=== PATIENT | female | born 1950 | race Caucasian/White ===

== ENCOUNTER → 2024-02-28 13:50 | Outpatient (REF) | payer MEDICARE, OTHER, SELFPAY | LOC: WDC 13:50 | PROVIDERS: ATTENDING PHYSICIAN Obstetrics & Gynecology Gynecology; FAMILY PHYSICIAN Physician Assistant Medical | DX: Z12.31 Encounter for screening mammogram for malignant neoplasm of breast (principal) | CPT/HCPCS: 77063; 77067 ==

== ENCOUNTER 2024-04-13 14:26 | Inpatient (IN) | payer MEDICARE, OTHER, SELFPAY ==
[2024-04-12] VITALS (11 sets, daily range): BP systolic 103–144; BP diastolic 57–106; BMI 22.4
[2024-04-12 11:45] LABS: % Basophils 2.1 % (0-2); % Eosinophils 6.9 % (0-6); % Immature Granulocytes 0.2 % (0-0.5); % Lymphocytes 21.5 % (20.5-51.1); % Monocytes 8.6 % (1.7-9.3); % Neutrophils 60.7 % (42.2-75.2); Absolute Basophils 0.1 10^3/uL (0-0.2); Absolute Eosinophils 0.4 10^3/uL (0-0.7); Absolute Lymphocytes 1.2 10^3/uL (1.2-3.4); Absolute Monocytes 0.5 10^3/uL (0.1-0.6); Absolute Neutrophils 3.3 10^3/uL (1.4-6.5); Hematocrit 31.7 % (37.0-47.0); Hemoglobin 10.8 g/dL (12.0-16.0); Mean Corp Hgb Conc. 34.1 g/dL (33.0-37.0); Mean Corpuscular Hgb 28.7 pg (27.0-31.0); Mean Corpuscular Volume 84.3 fL (81.0-99.0); Mean Platelet Volume 9.7 fL (7.4-10.4); Nucleated Red Blood Cells % 0 %; Platelet Count 297 10^3/uL (130-400); Red Blood Cell Count 3.76 10^6/uL (4.20-5.40); Red Cell Dist. Width 14.4 % (11.5-14.5); White Blood Cell Count 5.4 10^3/uL (4.8-10.8)
[2024-04-12 12:01] LABS: ALT (SGPT) 21 U/L (0-35); AST (SGOT) 40 U/L (14-36); Albumin 4.1 g/dl (3.5-5.0); Alkaline Phosphatase 59 U/L (38-126); Blood Urea Nitrogen 30 mg/dl (7-17); Calcium 9.3 mg/dl (8.4-10.2); Carbon Dioxide 25 mmol/L (22-30); Chloride 105 mmol/L (98-107); Glucose 101 mg/dl (70-99); Potassium 4.7 mmol/L (3.5-5.1); Sodium 139 mmol/L (135-145); Total Bilirubin 0.8 mg/dl (0.2-1.3); Total Protein 6.5 g/dl (6.3-8.2); eGFR > 60.00
[2024-04-12 12:10] LABS: Troponin I < 0.012 ng/ml
--- NOTE | 2024-04-12 13:29 | ED.GENMED ---
History of Present Illness
General
Chief Complaint: Cardiac Symptoms
Time Seen by Provider: 04/12/24 12:01
History of Present Illness
History of Present Illness:
73-year-old female with history of CAD status post stenting about 15 years ago presenting to the emergency department for concern of chest pain. Patient reports around 10:30 AM she was walking her dog and had acute onset of left-sided chest pain
with radiation to her jaw. Reports the pain was severe. She walked home and took a nitroglycerin. She reports that she has never had to take nitro in the past for pain. She does follow routinely with cardiology. Patient had 3 nitro in total,
reports improvement of pain after nitro. Denies difficulty breathing. Denies fever. Denies abdominal pain or GI symptoms. Denies additional acute medical complaints
Past History
Past History
ED Past Medical History: CAD, MS and Other (Allergic rhinitis)
ED Past Surgical History: Cardiac (stent)
Social History
Tobacco: Non-smoker
Alcohol: None
Drug: None
Personal:
Living: with family
Employment: Retired
Family History
Family History: CAD
Phy Exam
Physical Exam
Physical Exam:
General: Well-appearing, no clinical signs of dehydration, nontoxic and in no acute distress
HEENT: protecting airway
Neck: appears supple
CV: Normal heart rate, regular rhythm, no evidence of cyanosis
Resp: No accessory muscle use, no increased work of breathing, lungs clear to auscultation bilaterally
Abd: Soft and non-distended, no tenderness to palpation
Extremities: No deformities, no swelling, no erythema, pulses and sensation intact
Neuro: alert, no focal neurologic deficit
: deferred
Rectal: deferred
Psych: Normal affect
Skin: Intact
Scores
Heart Score for Chest Pain Patients
STEMI patient?: No
History: Highly Suspicious
ECG: Normal
Age: >/= 65 years
Risk Factors: 1 or 2 Risk Factors
Troponin: </= Normal Limit
Heart Score for Chest Pain Patients: 5
Heart Score Risk: 20.3% MACE over next 6 weeks
Course
Orders/Labs/Results
Orders:
Orders
04/12/24 11:00
Electrocardiogram (*1) Urgent
Reason for Study: Chest Pain
EKG- Treatment ONCE
04/12/24 11:34
Complete Blood Count/With Diff Urgent
Comprehensive Metabolic Panel Urgent
Troponin I Urgent
04/12/24 14:20
Troponin I Urgent
Abnormal Lab Results
04/12/24
11:34
RBC 3.76 L 10^6/uL
(4.20-5.40)
Hgb 10.8 L g/dL
(12.0-16.0)
Hct 31.7 L %
(37.0-47.0)
Eosinophils % 6.9 H %
(0-6)
Basophils % 2.1 H %
(0-2)
BUN 30 H mg/dl
(7-17)
Glucose 101 H mg/dl
(70-99)
AST 40 H U/L
(14-36)
04/12/24 11:34
04/12/24 11:34
Vital Signs
Initial and Last Documented VS:
Initial Vital Signs
Temp Pulse Resp BP Pulse Ox
98.4 F 89 17 134/106 97
04/12/24 11:19 04/12/24 11:19 04/12/24 11:19 04/12/24 11:19 04/12/24 11:19
Last Documented Vital Signs
Temp Pulse Resp BP Pulse Ox
98.4 F 57 17 113/66 99
04/12/24 11:19 04/12/24 15:00 04/12/24 15:00 04/12/24 15:00 04/12/24 15:00
MDM/Problems Addressed
MDM/Problems Addressed:
73-year-old female with history of CAD status post stenting 15 years ago presenting for episode of chest pain prior to arrival. Vital signs on arrival are significant for hypertension which has since improved.
On exam, patient is well-appearing, no acute distress or discomfort. Overall benign cardiac and pulmonary exam. EKG obtained, nonischemic. However, patient story is concerning, particularly relief after nitroglycerin, with known coronary artery
disease. Laboratory analysis obtained per nursing protocol, initial troponin undetectable. Will discuss with cardiology, moderate risk by heart score.
12:50 - Per cardiology, recommending second troponin.
16:00 - Second troponin within normal limits, however in discussion with cardiology, plan for observation admission given high risk nature. Likely stress testing tomorrow. Will admit to hospitalist service.
*EKG
Interpreted by ED Provider?: Yes
EKG Intrepretation Date: 04/12/24
EKG Intrepretation Time: 13:32
Interpretation: normal
Comparison EKG: no changes
Heart Rate: 92
Rate: normal
Rhythm: sinus
[place]: normal axis
Interval: normal interval
Ischemia: no ischemia
*Critical Care Note
Total Time (30-74mins, 75-104mins- exclusive of procedures): Not Applicable
ED Attending Note
-
Portions of this chart may have been created with voice recognition software.� Occasional wrong word or��sound alike� substitutions may have occurred due to the inherent limitations of voice recognition software.
Discharge Plan
Departure
Prescriptions:
No Action
atorvastatin 10 MG tablet
10 mg PO QPM
vitamin B complex 1 TAB tablet
1 tab PO DAILY
aspirin 81 mg Tablet,Delayed Release (Dr/Ec)
81 mg PO QPM
magnesium 250 mg Tablet
250 mg PO QPM
coenzyme Q10 [Co Q-10] 100 mg Capsule
100 mg PO DAILY
cholecalciferol (vitamin D3) 25 mcg (1,000 unit) Tablet
25 mcg PO DAILY
Referrals:
Natalie Ash PA-C [Family Provider] -
Interventions
Interventions:
*Risk Screen - Suicide Last Done: 04/12/24 11:36
*General Assessment Last Done: 04/12/24 11:36
*Neglect/Abuse Screening Last Done: 04/12/24 11:36
*ED COVID-19 Vaccine History Last Done: 04/12/24 11:36
ED- Pulmonary Assessment Last Done: 04/12/24 11:35
ED- Cardiac Assessment Last Done: 04/12/24 11:35
Discharge Date and Time
Print Language: KOREAN
[2024-04-12 15:06] LABS: Troponin I < 0.012 ng/ml
--- NOTE | 2024-04-12 16:18 | HPS.HSE ---
Family Physician
-
Family Physician: Natalie Ash PA-C
Chief Complaint
-
Left-sided chest pain
History of Present Illness
73-year-old female with known history of coronary artery disease status post stenting LAD placed in 2012, hypertension and she has been doing well since then had a 2 stress test but in 2012 and 2018 there were normal, presented to the hospital with
a who developed chest pain while doing her routine walking her dog a mile walk every day, just the end of the mild while she is going uphill started having the left side chest pain initially localized moderately severe and she decided to
walk back to the hospital and now walk the pain continue and start radiating to the left side of the neck and jaw and the left shoulder and the left elbow area, without changing the severity of the pain, she made at home and took 3 sublingual nitro
eventually pain subsided but they became a pressure but in milder form eventually by the time she was in the ER her pain completely went away, denies any sweating or any nausea or vomiting or any fever or chill or cough or congestion but no
shortness of breath.
According to the patient usually before. She does not eat anything other than a glass of the lemon water.
Denies recent travel or sick contact.
Workup in the ER including EKG and cardiac enzyme were negative
ER physician they spoke to the cardiology recommended admit for observation and trend the troponin.
She is awake, alert and oriented x 3 hold appropriate conversation accompanied by her at the bedside.
Medical History
Past Medical History
Past Medical History: Reports Other
Additional Past Medical History:
Past medical history reviewed:
Coronary artery disease status post stenting LAD in 2012
Dyslipidemia
Social history: No smoking alcohol use, she is independent lives at home with her .
Family history: Reviewed and noncontributory
Past Surgical History: Reports Other
Social History
Unable to obtain full social history at this time due to: Other
Family History
Family History: Other
Allergies / Home Medications
Allergies reflects when Allergies were last updated in [facility].
Home Medications with original date entered in [facility]
Allergy/Medication List:
Allergies
Allergy/AdvReac Type Severity Reaction Status Date / Time
seasonal Allergy sneezing, Uncoded 02/18/19 16:21
runny
itching
eyes
Home Medications
atorvastatin 10 mg tablet 10 mg PO QPM 01/24/13
vitamin B complex 1 tab PO DAILY 07/01/17
aspirin 81 mg tablet,delayed release 81 mg PO QPM 04/12/24
cholecalciferol (vitamin D3) 25 mcg (1,000 unit) tablet 25 mcg PO DAILY 04/12/24
coenzyme Q10 100 mg capsule (Co Q-10) 100 mg PO DAILY 04/12/24
magnesium 250 mg tablet 250 mg PO QPM 04/12/24
Review of Systems
-
A 12 point ROS was completed and negative except as noted: Yes
Physical Exam
Vital Signs
Vital Signs
Temp Pulse Resp BP Pulse Ox
98.4 F 79 13 138/79 100
04/12/24 11:19 04/12/24 16:00 04/12/24 16:00 04/12/24 16:00 04/12/24 16:03
Physical exam:
General: Awake, alert and oriented x3, not in distress and holds appropriate conversation.
HEENT: No active discharge, ecchymosis or bruising, moist lips, tongue and mucous membrane.
Eyes: No discharge or red conjunctiva, no nystagmus, pupils are reactive and equal
Neck:Supple, no JVD no bruit no goiter.
Respiratory: Normal AP contour and diameter, normal chest wall movement, normal respiratory effort, no respiratory distress,
Lungs: Good air entry bilaterally, no wheezing or rhonchi, no rales or crackles
Heart: S1, S2 regular, normal rate, no added sound.
Gastrointestinal: Positive bowel sounds, soft, nontender, no guarding or rigidity or organomegaly
Musculoskeletal: , no chest wall abnormality or tenderness. All joints and extremities have good range of motion, no muscle tenderness or any joint swelling or tenderness.
Extremities: No pitting edema, good peripheral pulses, good range of motion
Skin: Warm and dry, no ulceration, normal color.
Neurological: Awake, alert and oriented x3, no facial droop, speech clear and comprehensive, good muscle tone, normal sensory and motor function
Psychiatric: Normal mood, normal thought and judgment, normal affect,
Physical Exam
General: Other
Laboratory Results
-
04/12/24 11:34
04/12/24 11:34
Laboratory Results
Total Bilirubin 0.8 mg/dl (0.2-1.3) 04/12/24 11:34
AST 40 U/L (14-36) H 04/12/24 11:34
ALT 21 U/L (0-35) 04/12/24 11:34
Alkaline Phosphatase 59 U/L (38-126) 04/12/24 11:34
Troponin I < 0.012 ng/ml 04/12/24 14:20
EKG showed normal sinus rhythm rate around 92, AL 164, QTc 466 otherwise normal axis and no acute abnormalities
Data Reviewed
-
Medical Tests (Nuc Med, Echo, EKG etc): Image Personally Visualized and interpreted, Report Reviewed by me, Discussed with Patient and Discussed with Family
Lab Data: Labs Reviewed by me, Discussed with Patient and Discussed with Family
Old Records: Reviewed
Impression/Plan
-
IMPRESSION:
73-year-old female with history of CAD and stenting LAD placed in 2012, presented to the hospital with left-sided chest pain, concerning for coronary artery disease while other causes may need to be considered.
Left-sided chest pain: Coronary artery disease may need to be considered rule out, other possibility musculoskeletal or GERD, doubt pulm embolism as pain subsided there is no hypoxia or tachycardia.
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
Cardiology consult
May benefit from ischemic workup will defer to cardiology
Keep n.p.o. after midnight in case cardiology do any workup.
Continue aspirin and statin and she is not on any beta-lianne.
History of CAD and stent in LAD
As above
Dyslipidemia: Continue atorvastatin
All discussed with the patient and the in detail and expressed understanding
CODE STATUS full code
DVT prophylaxis Lovenox:
--- NOTE | 2024-04-12 17:49 | CON.CAR ---
Medical History
-
Chief Complaint: Chest pain
History of Present Illness:
73-year-old female with history of CAD status post LAD stenting about 15 years ago presenting to the emergency department for concern of chest pain. Patient reports around 10:30 AM she was walking her dog and had acute onset of left-sided chest
pain with radiation to her jaw. Reports the pain was severe. She walked home and took a nitroglycerin. She reports that she has never had to take nitro in the past for pain. She does follow routinely with cardiology. Patient had 3 nitro in
total, reports improvement of pain after nitro. Denies difficulty breathing. Denies fever. Denies abdominal pain or GI symptoms. Denies additional acute medical complaints
Last stress test was 2016 (07/16/2017) with nuclear myocardial perfusion scan -normal perfusion scan with negative for ischemia and had nonspecific ST depression changes with exercise on treadmill.
Last echo 07/31/2019: Normal BiV systolic functions. LVEF 65% no significant valvular disease.
Past Medical History
Past Medical History: CAD (Coronary disease with MN and PCI to LAD 15 years ago)
Past Surgical History: Cardiac (PCI to LAD)
Social History
Tobacco: Non-Smoker
Alcohol: None
Personal:
Living: With Family
Family History
Family History: Reviewed & Not Pertinent
Allergies / Home Medications
Allergy/AdvReac Type Severity Reaction Status Date / Time
seasonal Allergy sneezing, Uncoded 02/18/19 16:21
runny
itching
eyes
�Medication �Instructions �Recorded �Confirmed �Type
atorvastatin 10 mg tablet 10 mg PO QPM 01/24/13 04/12/24 History
vitamin B complex 1 tab PO DAILY 07/01/17 04/12/24 History
aspirin 81 mg tablet,delayed 81 mg PO QPM 04/12/24 04/12/24 History
release
cholecalciferol (vitamin D3) 25 25 mcg PO DAILY 04/12/24 04/12/24 History
mcg (1,000 unit) tablet
coenzyme Q10 100 mg capsule (Co 100 mg PO DAILY 04/12/24 04/12/24 History
Q-10)
magnesium 250 mg tablet 250 mg PO QPM 04/12/24 04/12/24 History
Review of Systems
-
History Source: Patient
All other systems: Negative unless noted
Physical Exam
Vital Signs
Temp Pulse Resp BP Pulse Ox
97.8 F 56 18 143/77 100
04/12/24 17:46 04/12/24 17:46 04/12/24 17:46 04/12/24 17:46 04/12/24 17:46
Lab Results
04/12/24 11:34
04/12/24 11:34
Troponin I < 0.012 ng/ml 04/12/24 14:20
Physical Exam
General: Well Developed, Well Nourished, No Apparent Distress and Comfortable
HEENT: Normocephalic, Anicteric and Moist Mucous Membranes
Respiratory: Clear and Non Labored Respirations
Cardiac: S1/S2 and Regular Rhythm; Negative Murmur
GI: Soft, Non Distended and Normal Bowel Sounds
Musculoskeletal: No Clubbing, No Cyanosis and No Edema
Skin: Warm and Dry
Neuro: Awake, Alert, Oriented, AO x 3 and No Motor Deficits
Psych: Calm
Impression / Plan
-
73-year-old woman with a history of coronary disease and PCI to LAD in 2012, presented with left-sided chest pain while walking with her dog
Chest pain
- Currently completely resolved and no sign of chest pain.
- Serial troponins are negative
- EKG is unchanged.
- Chest pain was typical and was associated with exertion. Given patient's history of LAD disease and last workup few years ago, we will recommend admitting patient overnight.
- Will plan to get echo and a stress test with myocardial perfusion scan in the morning.
-Patient's previous exercise stress test was falsely positive with no ischemia noted on the myocardial perfusion scans.
-We will also get exercise-stress myocardial perfusion scan.
- Continue aspirin and statins.
- Will start anticoagulation with heparin if chest pain recurs. Will also add beta-blockers at that time.
Data Reviewed
-
EKG: Tracing Personally Visualized and interpreted and Report Reviewed by me
Labs: Labs Reviewed by me, Discussed with Physician, Discussed with Nurse and Discussed with Patient
Old Records: Reviewed
[2024-04-12] MEDS: LIPITOR 10 MG PO (18:01)
[2024-04-12] MEDS: ASPIR LOW (ENTERIC COATED) 81 MG PO (18:01)
[2024-04-12] MEDS: MAGNESIUM OXIDE 250 MG PO (18:01)
[2024-04-12 22:09] LABS: Troponin I < 0.012 ng/ml
[2024-04-13] VITALS (15 sets, daily range): BP systolic 93–141; BP diastolic 48–70; BMI 22.4
[2024-04-13 04:53] LABS: Blood Urea Nitrogen 25 mg/dl (7-17); Calcium 9.5 mg/dl (8.4-10.2); Carbon Dioxide 26 mmol/L (22-30); Chloride 106 mmol/L (98-107); Estimated Creatinine Clearance 64 ml/min; Glucose 84 mg/dl (70-99); Potassium 4.2 mmol/L (3.5-5.1); Sodium 140 mmol/L (135-145); eGFR > 60.00
[2024-04-13 05:02] LABS: Troponin I < 0.012 ng/ml
--- NOTE | 2024-04-13 09:49 | W.PN.HOSP.TC ---
Today's Communication/Plan
-
NPO for cardiac cath
continue asa
start D5LR
Assessment / Plan
Assessment / Plan
73-year-old female with known history of coronary artery disease status post stenting LAD 2012, hypertension presents to the ER with chest pain while walking her dog. Pain radiated to left side of neck and jaw s/p 3 subL nitro with resolution of
pain.
TTE
CONCLUSIONS
Normal left ventricular size, wall thickness and systolic function. No regional
wall motion abnormalities are seen. LV ejection fraction is 57% by Bates's
method of discs. Normal diastolic function.
Normal right ventricular size and function.
Normal atria.
Mild posterior leaflet prolapse with trace mitral regurgitation is seen.
No other significant valve abnormalities.
No evidence of pulmonary hypertension.
No significant change since the prior study of 07/31/2019.
Left-sided chest pain
Unstable Angina
History of CAD and stent in LAD
-Troponin negative x 3
-Cardiology consult
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
-s/p echo this AM, results above
-patient developed hypotension and nausea during stress test - plan is to proceed to cath
-IV Heparin gtt initiated
-start D5LR, unclear timing cath
Dyslipidemia: Continue atorvastatin
All discussed with the patient and the in detail and expressed understanding
CODE STATUS full code
DVT prophylaxis Lovenox:
Anticipated Discharge: > 48 hours
Subjective/Interval History
-
Date of Service: April 13, 2024
seen post stress test, awaiting cath
currently denies chest pain
Objective Data
-
Labs:
Laboratory Results
04/13/24
03:58
Sodium 140
Potassium 4.2
Chloride 106
Carbon Dioxide 26
BUN 25 H
Creatinine 0.6
Glucose 84
Calcium 9.5
Vital Signs:
Vital Signs
Temp Pulse Resp BP Pulse Ox
97.9 F 61 20 123/70 99
04/13/24 07:48 04/13/24 07:48 04/13/24 07:48 04/13/24 07:48 04/13/24 07:50
I&O
04/12/24 04/13/24 04/14/24
06:59 06:59 06:59
Intake Total 240 / 240
Balance 240 / 240
Review of Systems
-
History Source: Patient
All other systems: Reviewed and negative
Physical Exam
-
General: No Apparent Distress
HEENT: PERRLA
Respiratory: Clear to Auscultation; Negative Wheezes
Cardiac: Regular Rhythm and S1/S2
GI: Soft and Nontender
Musculoskeletal: No Edema
Skin: Warm and Dry; Negative Rash
Neuro: AO x 3
Psych: Calm
Data Reviewed
-
Diagnostic Radiology: Report Reviewed by me
Labs: Labs Reviewed by me
--- NOTE | 2024-04-13 11:35 | W.PN.CD ---
Today's Communication / Plan
-
ASA, heparin drip
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
Impression / Plan
-
73-year-old woman with a history of coronary disease and PCI to LAD in 2012, hyperlipidemia is admitted with exertional chest pain.
# Chest pain
-concern for unstable angina with hypotension and nausea at stress test; unable to complete treadmill exercise
-discussed with patient and interventional cards
-proceed to [facility]
-echo today
-ASA 324mg and heparin drip
# CAD prior stent
-cont ASA
-plan for cath as above
# Hyperlipidemia
-she is on atorvastatin 10mg
-add on lipid panel to advise on dosing
Physical Exam
Vital Signs/Labs
Vital Signs
Temp Pulse Resp BP Pulse Ox
97.9 F 61 20 123/70 99
04/13/24 07:48 04/13/24 07:48 04/13/24 07:48 04/13/24 07:48 04/13/24 07:50
04/12/24 04/13/24 04/14/24
06:59 06:59 06:59
Actual Weight 55.593 kg
04/13/24 03:58
LAB Results
04/12/24 04/12/24 04/12/24
11:34 14:20 21:30
Troponin I < 0.012 < 0.012 < 0.012
04/13/24 04/13/24
02:00 03:58
Troponin I Cancelled < 0.012
Physical Exam
Constitutional: No acute distress and Comfortable
EENT: Moist mucous membranes
Cardiovascular: Rhythm & rate is regular, Pedal edema is absent, JVD pressure is normal and Systolic murmur absent
Respiratory: Respiratory effort normal and Lungs clear to auscul.
GI: Soft and Distention absent
Neuro/Psych: AO x 3
Data Reviewed
-
Date of Service: April 13, 2024
EKG: Other (Tele: SR 60s)
Labs: Labs Reviewed by me
[2024-04-13] MEDS: NSS 250 IV (11:36)
[2024-04-13] MEDS: ASPIRIN 325 MG PO (11:42)
--- NOTE | 2024-04-13 11:52 | PTCARENOTE ---
Pt in cardiac service in the process of a walking nuclear stress. First nuclear images were obtained by nuclear med. While starting to stand on the treadmill, she felt lightheaded, BP dropped to 86/60. Possible vasal vagel, BP then back to her
baseline, but when to back to the treadmill, she again felt lightheaded. PT denied any chest pain at this time. Dr Justin to room, spoke to pt, having her describe the chest discomfort she had that brought her to the ER yesterday morning. Dr Justin
decided for pt to have a cardiac cath today, and stop the nuclear stress test. Dr Justin spoke to laboratory animal caretaker and ARNULFO Campoverde in to see pt and write orders, and spoke to pt's nurse on . 250 ml NSS iv bolus infused and 325mg po aspirin was given with
sm sip of water. POst bolus, BP now 120/60. Pt being brought back to room and heparin iv to be started there.
[2024-04-13] MEDS: HEPARIN 3300 UNITS IV (12:55)
[2024-04-13] MEDS: HEPARIN 25000 UNITS/250 ML IV (12:57)
[2024-04-13 13:16] LABS: Hematocrit 35.2 % (37.0-47.0); Hemoglobin 11.8 g/dL (12.0-16.0); Mean Corp Hgb Conc. 33.5 g/dL (33.0-37.0); Mean Corpuscular Hgb 28.5 pg (27.0-31.0); Mean Platelet Volume 9.8 fL (7.4-10.4); Platelet Count 305 10^3/uL (130-400); Red Blood Cell Count 4.14 10^6/uL (4.20-5.40); Red Cell Dist. Width 14.6 % (11.5-14.5); White Blood Cell Count 6.2 10^3/uL (4.8-10.8)
[2024-04-13 13:20] LABS: APTT 23.4 Sec (23.4-35.0)
[2024-04-13 13:26] LABS: HDL Cholesterol 102 mg/dl; LDL Cholesterol, Calculated 54 mg/dl; Total Cholesterol 164 mg/dl (50-199); Triglyceride 44 mg/dl (10-149); Very Low Density Lipoprotein 8 mg/dl (0-30)
[2024-04-13 13:46] LABS: Troponin I < 0.012 ng/ml
--- NOTE | 2024-04-13 14:38 | CM ---
Patient seen bedside. IA completed.
Patient lives with spouse in a 2story home.
Independent prior to admission without assistive devices, although has RW at home.
Patient drives.
Patient attended outpatient cardiac rehab s/p prior OK.
patient for cardiac cath today.
IMM reviewed.
PCP: Dr Ash
Pharmacy: [facility]
Plan: home no needs anticipated, spouse will transport.
[2024-04-13 16:29] LABS: ACT-LR - POC 263 Seconds (116-155)
[2024-04-13 16:40] LABS: ACT-LR - POC 310 Seconds (116-155)
[2024-04-13] MEDS: NSS 1000 IV (18:04)
[2024-04-13] MEDS: TYLENOL 650 MG PO (18:10)
[2024-04-13] MEDS: MAGNESIUM OXIDE 250 MG PO (18:11)
[2024-04-13] MEDS: LIPITOR 40 MG PO (18:12)
--- NOTE | 2024-04-13 18:35 | PTCARENOTE ---
Patient arrived from cath laboratory technician with TR band on right wrist. Vital signs are stable. Pt endorsed pulling chest pain. Cardiology was at bedside and told patient to expect this pulling chest pain/pressure for 12-24 hours as it is related to the 'shock
wave therapy' she underwent in cath laboratory technician. Tylenol given per order for pain. RN updated pt and pt's on plan of care and pm medication administration.
--- NOTE | 2024-04-13 18:53 | ITS.CL.ANGIO ---
[employer] - Angioplasty
Angioplasty
Procedure Report:
CARDIAC CATHETERIZATION REPORT
Date of Procedure: 04/13/2024
Referring: Alan Justin M.D., Ph.D.
INDICATION: Unstable angina.
PROCEDURE:
1. Left heart catheterization
2. Coronary angiography
3. Successful IFR of the mid RCA.
4. Successful IFR of the proximal LAD.
5. Successful IVUS of the proximal/mid LAD and left main coronary artery.
6. Successful intracoronary lithotripsy of the proximal LAD.
7. Successful PCI of the proximal LAD.
ACCESS:
6 Kenyan right radial artery.
CATHETERS:
1. 5 Kenyan JR4.
2. 5 Kenyan JL 3.5.
3. 6 Kenyan EBU 3.5 guiding catheter.
HEMODYNAMIC DATA
Weight (kg): 55.3
AO (s/d/x, mmHg): 109/68/87
LV (s/x mmHg): 111/8
LEFT VENTRICULOGRAPHY: Not performed.
CORONARY ANGIOGRAPHY
Dominance: Right.
Left Main: Normal size, trifurcating vessel. There is no coronary artery disease.
LAD: Normal size vessel giving rise to a very small D1 followed by a much larger second diagonal. There is a significant, underappreciated, densely calcified lesion in the proximal margin of the LAD. There is a patent stent in the mid LAD with
30-40% in-stent restenosis.
Ramus: Medium to large size vessel supplying a significant portion of the anterolateral wall. There is moderate tortuosity. There is no coronary artery disease.
Circumflex: Large size, nondominant vessel giving rise to 2 small obtuse marginals before terminating as a left posterolateral branch. There is no coronary artery disease.
RCA: Normal size, dominant vessel. There is at least moderate tortuosity. There is a 50% lesion in the mid vessel.
INTERVENTION(S)
1. Successful IFR of the 50% mid RCA lesion, demonstrating nonocclusive disease (IFR = 0.95).
2. Successful IFR of the proximal and mid LAD including the 30-40% in-stent restenosis, demonstrating significant, occlusive disease (IFR = 0.60).
3. Successful IVUS of the proximal and mid LAD confirming 30-40% in-stent restenosis and revealing a significant, densely calcified proximal LAD lesion, underappreciated on angiography.
4. Successful intracoronary lithotripsy of the proximal LAD lesion (shockwave 3.5 x 12 coronary lithotripsy balloon).
5. Successful PCI of the proximal LAD lesion and the 30-40% in-stent restenosis (Medtronic [place] 3.0 x 34 LOI, postdilated with a 3.0 NC balloon) with reduction in stenosis to 0%, maintaining ANNABEL-3 flow.
Narrative:
The decision was made to perform physiologic testing. The diagnostic catheter was removed over a wire and exchanged for a(n) 6 Kenyan JR4 guiding catheter. The guiding catheter was advanced into the ascending aorta and seated in the right coronary
artery. Additional heparin was given to obtain an ACT greater than 250 seconds. An iFR wire was zeroed outside of the body, then inserted into the guiding sheath. The wire was advanced and the transducer was normalized just outside of the guiding
catheter tip. The wire was advanced into the distal RCA. Three iFR measurements were taken. The lesion was determined to be nonocclusive (0.95).
We then turned our attention to the left anterior descending artery. The decision was made to perform physiologic testing. The JR4 guiding catheter was removed over a wire and exchanged for a(n) 6 Kenyan EBU 3.5 guiding catheter. The guiding
catheter was advanced into the ascending aorta and seated in the left main coronary artery. Additional heparin was given to obtain an ACT greater than 250 seconds. An iFR wire was zeroed outside of the body, then inserted into the guiding sheath.
The wire was advanced and the transducer was normalized just outside of the guiding catheter tip. The wire was advanced into the mid LAD, beyond the stented segment with 30-40% in-stent restenosis. Three iFR measurements were taken. The lesion was
determined to be severely occlusive (0.60).
Given the relative surprise of such a positive result from IFR in the mid LAD as well as concern for catheter dampening with engagement of the left main, the decision was made to perform intracoronary imaging. The connection was removed from the
IFR wire, which was subsequently used for IVUS. An IVUS catheter was advanced through the guiding catheter and into the ostium of the artery. Ring down was performed once the imaging crystal was no longer inside of the guiding catheter. The IVUS
catheter was advanced into the mid LAD. Intravascular ultrasound was performed in a retrograde fashion using a slow pullback. Intracoronary imaging demonstrated significant in-stent restenosis within the stented segment of the artery. More
proximally to the artery, IVUS revealed a severe, densely calcified proximal LAD lesion. The lesion extended into the proximal LAD but did not intrude upon the left main. IVUS also confirmed there was no occlusive pathology within the left main
coronary artery.
The decision was made to proceed with percutaneous coronary intervention. The Omni wire was removed. Additional heparin was given and a Power Turn Flex wire was advanced into the distal LAD.
Given the 360 degree arc of calcium observed on the IVUS, the decision was made to proceed with upfront intracoronary lithotripsy. A Shockwave 3.5 x 12 coronary lithotripsy balloon was advanced over the wire and into the proximal LAD lesion. The
balloon was sterilely connected to the controller and prepped to negative pressure. Meticulous care was taken while positioning the shockwave balloon. Once in satisfactory position, the balloon was inflated to 4 zach. After confirming good contact
with the vessel wall, 10 pulses were delivered. After delivering 10 pulses, the balloon was inflated to 6 zach then deflated. The entire lesion was treated in a similar manner for total of 8 rounds.
The shockwave balloon was removed and a Medtronic [place] 3.0 x 34 drug-eluting stent was advanced. Meticulous care was taken while positioning the stent, ensuring that the proximal stent did not meaningfully protrude into the left main
coronary artery. The distal aspect of the stent was covering the entire in-stent restenosis segment. The stent was deployed at 12 atmospheres. The stent balloon was removed. A 3.0 x 20 noncompliant balloon was advanced into the stent and the stent
was postdilated to 16 atmospheres. Angiography was performed in orthogonal views, confirming good stent expansion and an excellent angiographic result. The coronary wire was withdrawn and the guide was disengaged from the artery. The catheter was
removed over a standard J-wire.
Closure Device: Vascular band.
Radiation (mGy): 756.93
DAP (cm2.Gy): 40.9963
Fluoroscopy time (minutes): 21.9
Sedation time (minutes): 88
CONCLUSIONS
1. Right dominant circulation with nonocclusive 50% mid RCA lesion (IFR = 0.95), a 30-40% in-stent restenosis lesion in the patent mid LAD stent and an underappreciated, densely calcified, severely occlusive proximal LAD lesion (IFR = 0.60) status
post successful IVUS guided intracoronary lithotripsy (shockwave 3.5 x 12 intracoronary lithotripsy balloon) and PCI (Medtronic [place] 3.0 x 34 LOI, postdilated with a 3.0 NC balloon) with reduction in stenosis to 0%, maintaining ANNABEL-3 flow.
2. Normal filling pressures (LVEDP = 8 mmHg at 55.3 kg).
RECOMMENDATIONS:
1. Expectant management after cardiac catheterization via right radial approach.
2. Limited weight bearing on the right for one week.
3. Dual antiplatelet therapy with aspirin and clopidogrel for at least 12 months, followed by aspirin indefinitely.
4. Aggressive risk factor modification including high-dose, high potency statin.
5. Echocardiogram ordered and pending.
6. Guideline directed medical therapy as hemodynamics will tolerate.
7. Referral to cardiac rehab.
Copy to: Alan Justin M.D., Ph.D., EBONY Lund, Ritesh Rosa M.D.
Álvaro Munguia DO, FACC, FACP
[2024-04-14] VITALS (17 sets, daily range): BP systolic 80–128; BP diastolic 39–115
[2024-04-14] MEDS: NSS 1000 IV (01:20)
[2024-04-14 04:24] LABS: Hematocrit 31.8 % (37.0-47.0); Hemoglobin 10.7 g/dL (12.0-16.0); Mean Corp Hgb Conc. 33.6 g/dL (33.0-37.0); Mean Corpuscular Hgb 28.3 pg (27.0-31.0); Mean Corpuscular Volume 84.1 fL (81.0-99.0); Mean Platelet Volume 10.1 fL (7.4-10.4); Platelet Count 288 10^3/uL (130-400); Red Blood Cell Count 3.78 10^6/uL (4.20-5.40); Red Cell Dist. Width 14.4 % (11.5-14.5); White Blood Cell Count 6.6 10^3/uL (4.8-10.8)
[2024-04-14 04:47] LABS: Blood Urea Nitrogen 21 mg/dl (7-17); Calcium 9.1 mg/dl (8.4-10.2); Carbon Dioxide 23 mmol/L (22-30); Chloride 107 mmol/L (98-107); Estimated Creatinine Clearance 64 ml/min; Glucose 102 mg/dl (70-99); Magnesium 2.1 mg/dl (1.6-2.3); Potassium 4.3 mmol/L (3.5-5.1); Sodium 141 mmol/L (135-145); eGFR > 60.00
--- NOTE | 2024-04-14 07:46 | W.PN.HOSP.TC ---
Today's Communication/Plan
-
see plan
Assessment / Plan
Assessment / Plan
73-year-old female with known history of coronary artery disease status post stenting LAD 2012, hypertension presents to the ER with chest pain while walking her dog. Pain radiated to left side of neck and jaw s/p 3 subL nitro with resolution of
pain.
TTE 04/13/24
CONCLUSIONS
Normal left ventricular size, wall thickness and systolic function. No regional
wall motion abnormalities are seen. LV ejection fraction is 57% by Bates's
method of discs. Normal diastolic function.
Normal right ventricular size and function.
Normal atria.
Mild posterior leaflet prolapse with trace mitral regurgitation is seen.
No other significant valve abnormalities.
No evidence of pulmonary hypertension.
No significant change since the prior study of 07/31/2019.
Cardiac Cath 04/13/24
CONCLUSIONS
1. Right dominant circulation with nonocclusive 50% mid RCA lesion (IFR = 0.95), a 30-40% in-stent restenosis lesion in the patent mid LAD stent and an underappreciated, densely calcified, severely occlusive proximal LAD lesion (IFR = 0.60) status
post successful IVUS guided intracoronary lithotripsy (shockwave 3.5 x 12 intracoronary lithotripsy balloon) and PCI (Medtronic [place] 3.0 x 34 LOI, postdilated with a 3.0 NC balloon) with reduction in stenosis to 0%, maintaining ANNABEL-3 flow.
2. Normal filling pressures (LVEDP = 8 mmHg at 55.3 kg).
RECOMMENDATIONS:
1. Expectant management after cardiac catheterization via right radial approach.
2. Limited weight bearing on the right for one week.
3. Dual antiplatelet therapy with aspirin and clopidogrel for at least 12 months, followed by aspirin indefinitely.
4. Aggressive risk factor modification including high-dose, high potency statin.
5. Echocardiogram ordered and pending.
6. Guideline directed medical therapy as hemodynamics will tolerate.
7. Referral to cardiac rehab.
Left-sided chest pain
Unstable Angina
History of CAD and stent in LAD
-Troponin negative x 3
-Cardiology consult appreciated
--patient developed hypotension and nausea during stress test - proceeded to cath and found to have severely occlusive proximal LAD lesion; 30-40% in-stent restenosis mid LAD s/p lithotripsy, PCI 04/13
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
- plavix x 1 year
- F/U further cardiology recs
Dyslipidemia: Continue atorvastatin
All discussed with the patient and the in detail and expressed understanding
CODE STATUS full code
DVT prophylaxis
Anticipated Discharge: Within 24 hours
Subjective/Interval History
-
Date of Service: April 14, 2024
right wrist had band on for a while overnight, some bruising no hematoma
no chest pain
Objective Data
-
Labs:
Laboratory Results
04/13/24 04/14/24
19:05 03:53
WBC 6.6
Hgb 10.7 L
Hct 31.8 L
Plt Count 288
APTT Cancelled
Sodium 141
Potassium 4.3
Chloride 107
Carbon Dioxide 23
BUN 21 H
Creatinine 0.6
Glucose 102 H
Calcium 9.1
Vital Signs:
Vital Signs
Temp Pulse Resp BP Pulse Ox
98.2 F 61 18 106/52 98
04/14/24 07:25 04/14/24 04:00 04/14/24 07:25 04/14/24 04:00 04/14/24 07:25
I&O
04/13/24 04/14/24 04/15/24
06:59 06:59 06:59
Intake Total 240 / 240 1165 / 1165
Output Total 0 / 0
Balance 240 / 240 1165 / 1165
Review of Systems
-
History Source: Patient
All other systems: Reviewed and negative
Physical Exam
-
General: No Apparent Distress
HEENT: PERRLA
Respiratory: Clear to Auscultation; Negative Wheezes
Cardiac: Regular Rhythm and S1/S2
GI: Soft and Nontender
Musculoskeletal: No Edema and Other (right wrist with full ROM, no hematoma )
Skin: Warm and Dry; Negative Rash
Neuro: AO x 3
Psych: Calm
Data Reviewed
-
Diagnostic Radiology: Report Reviewed by me
Labs: Labs Reviewed by me
--- NOTE | 2024-04-14 07:50 | PTCARENOTE ---
Assumed care of pt from prev nsg shift; AAOx3 w/no c/o CP or SOB. Pt's VS stable w/HR in the 60's, BP this AM 109/56. Pt w/ R radial site w/dressing C/D?I w/no signs of hematoma vasiliy longer. Area around radial site very ecchymotic, w/no bleeding. Pt
w/NSS IV fluids infusing as ordered. Discussed plan of care w/pt. No addtl needs at this time. Plan of care ongoing.
--- NOTE | 2024-04-14 07:55 | W.CARD.POSTP ---
Post PCI Follow Up
Procedure
Procedure/Date: 04/13/24-proximal LAD iFR +, s/p angioplasty with shockwave and LOI x1
RCA iFR negative
Subjective:
post procedure chest discomfort now resolved
oob ambulating
cath site without pain
Site
Site: Radial: Right and No ht/bleeding, distal pulses palpable
Tele / EKG
SB/SR 40-60s w/sinus arrhythmia
no vt
Labs
04/14/24 03:53
04/14/24 03:53
APTT Cancelled 04/13/24 19:05
Magnesium 2.1 mg/dl (1.6-2.3) 04/14/24 03:53
Triglycerides 44 mg/dl (10-149) 04/13/24 03:58
LDL Cholesterol, Calc 54 mg/dl 04/13/24 03:58
VLDL Cholesterol, Calc 8 mg/dl (0-30) 04/13/24 03:58
HDL Cholesterol 102 mg/dl 04/13/24 03:58
DAPT Medication
DAPT Medication: Aspirin 81mg daily and Clopidogrel 75 mg daily
Plan
[place] with negative troponin x5
increase lipitor to 40mg/daily
BP soft and HR 50-60s- will hold on addition of any BB or RANDALL/ARB at this time
Cardiac rehab
Cards followup- 05/08 at 9:20am with Heather Quintana NP
--- NOTE | 2024-04-14 08:42 | W.PN.CD ---
Today's Communication / Plan
-
-Patient underwent successful LOI to proximal LAD yesterday; clinically stable.
-Unable to tolerate a beta-lianne due to baseline bradycardia.
-Atorvastatin increased from 10 mg to 40 mg daily; continue.
-Continue aspirin/Plavix for 1 year, then aspirin indefinitely.
-Echocardiogram yesterday revealed an LVEF of 55-60% with no significant valvulopathy.
-Stable for discharge home today; outpatient follow-up with cardiology.
Impression / Plan
-
73-year-old woman with a history of coronary disease and PCI to LAD in 2012, hyperlipidemia is admitted with exertional chest pain.
# Chest pain/UA:
-Patient underwent successful LOI to proximal LAD yesterday; clinically stable.
-Unable to tolerate a beta-lianne due to baseline bradycardia.
-Atorvastatin increased from 10 mg to 40 mg daily; continue.
-Continue aspirin/Plavix for 1 year, then aspirin indefinitely.
-Echocardiogram yesterday revealed an LVEF of 55-60% with no significant valvulopathy.
-Stable for discharge home today; outpatient follow-up with Cardiology.
# Hyperlipidemia
-Statin increased as above.
Physical Exam
Vital Signs/Labs
Vital Signs
Temp Pulse Resp BP Pulse Ox
98.2 F 57 18 115/63 98
04/14/24 07:25 04/14/24 08:00 04/14/24 07:25 04/14/24 08:00 04/14/24 07:25
04/13/24 04/14/24 04/15/24
06:59 06:59 06:59
Actual Weight 55.593 kg
04/14/24 03:53
04/14/24 03:53
APTT Cancelled 04/13/24 19:05
Magnesium 2.1 mg/dl (1.6-2.3) 04/14/24 03:53
Triglycerides 44 mg/dl (10-149) 04/13/24 03:58
LDL Cholesterol, Calc 54 mg/dl 04/13/24 03:58
VLDL Cholesterol, Calc 8 mg/dl (0-30) 04/13/24 03:58
HDL Cholesterol 102 mg/dl 04/13/24 03:58
LAB Results
04/12/24 04/12/24 04/12/24
11:34 14:20 21:30
Troponin I < 0.012 < 0.012 < 0.012
04/13/24 04/13/24 04/13/24
02:00 03:58 12:59
Troponin I Cancelled < 0.012 < 0.012
Physical Exam
Constitutional: No acute distress and Comfortable
EENT: Anicteric
Cardiovascular: Rhythm & rate is regular, Pedal edema is absent, Systolic murmur absent and S1S2 is normal
Respiratory: Respiratory effort normal and Lungs clear to auscul.
GI: Soft
Neuro/Psych: AO x 3
Other: Skin (Warm, dry, intact)
Data Reviewed
-
Date of Service: April 14, 2024
EKG: Tracing Personally Visualized and interpreted (Telemetry: Sinus rhythm)
Echo: Report Reviewed by me (LVEF 55-60%)
Medical Tests (PFT, Pathology etc): Discussed with Patient
Labs: Labs Reviewed by me
--- NOTE | 2024-04-14 08:55 | W.DS.TRANS ---
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
-
Discharge Instructions:
Sleep Apnea Risk Low
Discharge Diagnosis/Procedures Lithotripsy and angioplasty with stent to Left
Anterior Descending artery
Diet Regular
Activity As tolerated
Driving Restrictions No driving for 24 hours
Other Services Cardiac Rehab
Instructions:
Stand-Alone Forms: DC Instructions- Cath/EP Lab
Changes to Home Medications: Yes
Discharge Medications:
DC Medications w/original date entered in [employer]
vitamin B complex 1 tab PO DAILY 07/01/17
aspirin 81 mg tablet,delayed release 81 mg PO QPM 04/12/24
cholecalciferol (vitamin D3) 25 mcg (1,000 unit) tablet 25 mcg PO DAILY 04/12/24
coenzyme Q10 100 mg capsule (Co Q-10) 100 mg PO DAILY 04/12/24
magnesium 250 mg tablet 250 mg PO QPM 04/12/24
atorvastatin 40 mg tablet 40 mg PO QPM #30 tabs 04/14/24
clopidogrel 75 mg tablet 75 mg PO DAILY #90 tabs 04/14/24
Home Medication Changes
Continue aspirin/Plavix for 1 year, then aspirin indefinitely
Your Lipitor is increased from 10mg to 40mg in evenings.
Pending Results: No
[2024-04-14] MEDS: PLAVIX 75 MG PO (09:23)
--- NOTE | 2024-04-14 09:33 | CM ---
Reviewed chart. Mrs. Sanchez was transferred to IVU. [facility] Mrs. Sanchez to review discharge plans. She states she is feeling well and maybe able to go home soon. She states prior to admission she resides with her spouse in a to story home with
two steps to enter. She states she has a full flight of steps to get to bedroom/full bathroom. She states she has a powder room on the first floor. She states prior to admission she was independent with ambulation and adls. She states she has a
rolling walker at home and no other DME. Currently she is not using the walker. She states she has a prescription plan and uses [facility]. Medical work-up in progress. The discharge plan is to return home with her spouse when medically
stable.
--- NOTE | 2024-04-14 11:43 | PTCARENOTE ---
Discharge instructions discussed w/pt. IV line & telemetry pack removed. 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 Pt discharged to home w/spouse providing transportation.
--- NOTE | 2024-04-14 14:13 | W.DCSUMMARY ---
Discharge Summary
Discharge Data
Date of Admission: 04/13/24
Date of Discharge: 04/14/24
-
Pending Results: No
Hospital Course
Discharging Physician : Dr. Corina Rashid
Disposition : Home
Primary care physician : Dr. Natalie Ash
Principal Discharge diagnosis : Coronary Artery Disease, Unstable Angina
Hospital Course :
Ms. Samantha Sanchez is a 73 yo woman with known history of coronary artery disease status post PCI to LAD 2012, hypertension presents to the ER with chest pain while walking her dog. Pain radiated to the left side of her neck and jaw relieved after
3 subL nitro. She was admitted to medicine with Cardiology consulting. Troponin remained negative overnight. Stress test attempted but patient had hypotension and nausea. Cardiac cath performed evening of 04/13 with finding of severely occlusive
proximal LAD lesion; 30-40% in-stent restenosis mid LAD s/p lithotripsy, PCI. Patient is started on daily Plavix x 12 months and her Lipitor is increased. Unable to tolerate a beta-lianne secondary to baseline bradycardia. She will follow up
closely with Cardiology.
Time spent on discharge was 32 minutes.
Important imaging findings :
TTE 04/13/24
CONCLUSIONS
Normal left ventricular size, wall thickness and systolic function. No regional
wall motion abnormalities are seen. LV ejection fraction is 57% by Bates's
method of discs. Normal diastolic function.
Normal right ventricular size and function.
Normal atria.
Mild posterior leaflet prolapse with trace mitral regurgitation is seen.
No other significant valve abnormalities.
No evidence of pulmonary hypertension.
No significant change since the prior study of 07/31/2019.
Procedure findings :
Cardiac Cath 04/13/24
CONCLUSIONS
1. Right dominant circulation with nonocclusive 50% mid RCA lesion (IFR = 0.95), a 30-40% in-stent restenosis lesion in the patent mid LAD stent and an underappreciated, densely calcified, severely occlusive proximal LAD lesion (IFR = 0.60) status
post successful IVUS guided intracoronary lithotripsy (shockwave 3.5 x 12 intracoronary lithotripsy balloon) and PCI (Medtronic [place] 3.0 x 34 LOI, postdilated with a 3.0 NC balloon) with reduction in stenosis to 0%, maintaining ANNABEL-3 flow.
2. Normal filling pressures (LVEDP = 8 mmHg at 55.3 kg).
RECOMMENDATIONS:
1. Expectant management after cardiac catheterization via right radial approach.
2. Limited weight bearing on the right for one week.
3. Dual antiplatelet therapy with aspirin and clopidogrel for at least 12 months, followed by aspirin indefinitely.
4. Aggressive risk factor modification including high-dose, high potency statin.
5. Echocardiogram ordered and pending.
6. Guideline directed medical therapy as hemodynamics will tolerate.
7. Referral to cardiac rehab.
Discharge Plan
-
Patient Disposition: Home (Routine Discharge)
Discharge Diagnosis/Procedures: Lithotripsy and angioplasty with stent to Left Anterior Descending artery
Diet: Regular
Activity: As tolerated
Driving Restrictions: No driving for 24 hours
Other Services: Cardiac Rehab
Stand Alone Forms: DC Instructions- Cath/EP Lab
Referrals:
[facility]. Cardiac Rehab [Outside] - 05/12/24 11:00 am
(Cardiac Rehab Orientation and First Exercise appointment is on Sunday May 12, 2024 at 11AM. Please complete pre-admission surveys via email prior to your appointment.
The Cardiac Rehab gym is located on the first floor of the [facility].)
Heather Quintana CRNP [Specified Professional Personl] - 05/08/24 9:20 am (Cardiology followup appointment)
Natalie Ash PA-C [Family Provider] - in less than 1 week
Additional Discharge Medication Instructions: Continue aspirin/Plavix for 1 year, then aspirin indefinitely
Your Lipitor is increased from 10mg to 40mg in evenings.
Prescriptions:
New
atorvastatin 40 mg Tablet
40 mg PO QPM Qty: 30 0RF
clopidogrel 75 mg Tablet
75 mg PO DAILY Qty: 90 4RF
Continued
vitamin B complex 1 TAB tablet
1 tab PO DAILY
aspirin 81 mg Tablet,Delayed Release (Dr/Ec)
81 mg PO QPM
magnesium 250 mg Tablet
250 mg PO QPM
coenzyme Q10 [Co Q-10] 100 mg Capsule
100 mg PO DAILY
cholecalciferol (vitamin D3) 25 mcg (1,000 unit) Tablet
25 mcg PO DAILY
Discontinued
atorvastatin 10 MG tablet
10 mg PO QPM
Discharge Orders:
Discharge Patient (As Directed); Ordered 04/14/24
Ordered By: Corina Rashid
Care Plan Goals
Care Plan Goals:
Problem: Readiness for enhanced knowledge related to diagnosis and treatment plan
Goal: Understand your diagnosis and treatment plan needs, including medications if applicable.
Instructions: Know your diagnosis, underlying causes and treatment plan options, including medications if applicable. Consult with your health care team to learn about your diagnosis and treatment plan, including medications if applicable.
Discharge Date and Time
Discharge Date/Time: 04/14/24 11:20
Print Language: SWISS
== END 2024-04-14 11:20 | disposition home or self-care (01) | DRG 324 ==
LOC: IVU 14:26
PROVIDERS: Internal Medicine Cardiovascular Disease; Nurse Practitioner; ADMITTING PHYSICIAN Internal Medicine; ATTENDING PHYSICIAN Student in an Organized Health Care Education/Training Program; CONSULT PHYSICIAN Internal Medicine Cardiovascular Disease; EMERGENCY PHYSICIAN Student in an Organized Health Care Education/Training Program; FAMILY PHYSICIAN Physician Assistant Medical
PROC: 4A033BC Measurement of Arterial Pressure, Coronary, Percutaneous Approach (ICD-10-PCS; 2024-04-13)
PROC: 02F03ZZ Fragmentation in Coronary Artery, One Artery, Percutaneous Approach (ICD-10-PCS; 2024-04-13)
PROC: B240ZZ3 Ultrasonography of Single Coronary Artery, Intravascular (ICD-10-PCS; 2024-04-13)
PROC: 4A023N7 Measurement of Cardiac Sampling and Pressure, Left Heart, Percutaneous Approach (ICD-10-PCS; 2024-04-13)
PROC: B2111ZZ Fluoroscopy of Multiple Coronary Arteries using Low Osmolar Contrast (ICD-10-PCS; 2024-04-13)
PROC: 027034Z Dilation of Coronary Artery, One Artery with Drug-eluting Intraluminal Device, Percutaneous Approach (ICD-10-PCS; 2024-04-13)
DX: I25.110 Atherosclerotic heart disease of native coronary artery with unstable angina pectoris (principal); T82.855A Stenosis of coronary artery stent, initial encounter; I10 Essential (primary) hypertension; E78.5 Hyperlipidemia, unspecified; J30.2 Other seasonal allergic rhinitis; I25.2 Old myocardial infarction; Z79.82 Long term (current) use of aspirin; Y83.1 Surgical operation with implant of artificial internal device as the cause of abnormal reaction of the patient, or of later complication, without mention of misadventure at the time of the procedure
CPT/HCPCS: 78452; 80048; 80053; 80061; 83735; 84484; 85025; 85027; 85347; 85730; 92978; 93005; 93017; 93306; 93458; 93571; 93572; 99285; A9500; C1725; C1753; C1769; C1874; C1894; C9600; Q9967

== ENCOUNTER 2024-05-15 13:47 | Outpatient (RCR) | payer MEDICARE, OTHER, SELFPAY | END 2024-05-15 23:59 | disposition home or self-care (01) | LOC: CRHB 13:47 | PROVIDERS: ATTENDING PHYSICIAN Internal Medicine; FAMILY PHYSICIAN Physician Assistant Medical | DX: I25.10 Atherosclerotic heart disease of native coronary artery without angina pectoris (principal); Z95.5 Presence of coronary angioplasty implant and graft | CPT/HCPCS: G0422; G0423 ==

== ENCOUNTER 2024-06-17 13:35 | Outpatient (RCR) | payer MEDICARE, OTHER, SELFPAY | END 2024-06-17 23:59 | disposition home or self-care (01) | LOC: CRHB 13:35 | PROVIDERS: ATTENDING PHYSICIAN Internal Medicine; FAMILY PHYSICIAN Physician Assistant Medical | DX: I25.10 Atherosclerotic heart disease of native coronary artery without angina pectoris (principal); Z95.5 Presence of coronary angioplasty implant and graft | CPT/HCPCS: G0422; G0423 ==

== ENCOUNTER 2024-06-19 13:10 | Outpatient (RCR) | payer MEDICARE, OTHER, SELFPAY | END 2024-06-19 16:00 | disposition home or self-care (01) | LOC: CRHB 13:10 | PROVIDERS: ATTENDING PHYSICIAN Internal Medicine; FAMILY PHYSICIAN Physician Assistant Medical | DX: I25.10 Atherosclerotic heart disease of native coronary artery without angina pectoris (principal); Z95.5 Presence of coronary angioplasty implant and graft | CPT/HCPCS: G0422 ==

== ENCOUNTER → 2024-07-29 09:58 | Outpatient (REF) | payer MEDICARE, OTHER, SELFPAY | LOC: WDC 09:58 | PROVIDERS: ATTENDING PHYSICIAN Obstetrics & Gynecology Gynecology | DX: N63.10 Unspecified lump in the right breast, unspecified quadrant (principal); N63.13 Unspecified lump in the right breast, lower outer quadrant | CPT/HCPCS: 76642; 77061; 77065 ==

== ENCOUNTER → 2025-03-19 12:46 | Outpatient (REF) | payer MEDICARE, OTHER, SELFPAY | LOC: WDC 12:46 | PROVIDERS: ATTENDING PHYSICIAN Obstetrics & Gynecology Gynecology; FAMILY PHYSICIAN Physician Assistant Medical | DX: Z12.31 Encounter for screening mammogram for malignant neoplasm of breast (principal) | CPT/HCPCS: 77063; 77067 ==